=== PATIENT | female | born 1980 | race American Indian/Alaskan Native ===

== ENCOUNTER 2018-08-13 11:00 | Outpatient (CLI) | payer MEDICAID | END 2018-08-13 11:01 | disposition home or self-care (01) | LOC: SLR 11:00 | PROVIDERS: ATTEND Otolaryngology | DX: G47.33 Obstructive sleep apnea (adult) (pediatric) (principal); R40.0 Somnolence; R06.83 Snoring | CPT/HCPCS: G0399 ==

== ENCOUNTER 2018-08-14 14:36 | Outpatient (CLI) | payer MEDICAID ==
--- NOTE | 2018-08-14 16:39 | XRay Report ---
PROCEDURE: XR CHEST ROUTINE 2V TECHNIQUE: PA and lateral views of the chest. HISTORY: PRE OP COMPARISONS: None FINDINGS: Lines, tubes, and devices: N/A Lungs and pleura: Trachea is normal in position. Lungs are clear of infiltrate, pleural effusion, vas cular congestion, or pneumothorax. Cardiomediastinal silhouette: Cardiac and mediastinal silhouettes are unremarkable. Other: Bony structures are intact. IMPRESSION: No acute cardiopulmonary process seen. . This document is electronically signed by Candace Saucedo MD., August 14 2018 04:36:55 PM ET
== END 2018-08-14 14:37 | disposition home or self-care (01) ==
LOC: XRAY 14:36
PROVIDERS: ATTEND Internal Medicine
DX: Z01.818 Encounter for other preprocedural examination (principal)
CPT/HCPCS: 71046

== ENCOUNTER → 2018-09-10 | Outpatient (CLI) | payer MEDICAID | END | disposition home or self-care (01) | LOC: SLR 11:00 | PROVIDERS: ATTEND Otolaryngology | DX: G47.33 Obstructive sleep apnea (adult) (pediatric) (principal); R06.83 Snoring; R40.0 Somnolence; E66.9 Obesity, unspecified | CPT/HCPCS: 95811 ==

== ENCOUNTER 2020-05-10 12:16 | Outpatient (CLI) | payer MEDICAID ==
[2020-05-10 12:56] LABS: Hematocrit 40.4 % (30.3-42.9); Hemoglobin 13.6 gm/dl (10.1-14.3); Mean Corpuscular HGB Conc 34 % (30-34); Mean Corpuscular Volume 81 fl (79-97); Platelet Count 200 K/mm3 (140-440); Red Cell Distribution Width 13.5 % (13.2-15.2)
[2020-05-10 13:08] LABS: Alanine Aminotransferase 25 units/L (7-56); BUN/Creatinine Ratio 28; Blood Urea Nitrogen 14 mg/dL (7-17); Calcium 9.6 mg/dL (8.4-10.2); Chol/HDL Ratio 2.66 %; HDL Cholesterol 50 mg/dL (40-59); Hemolysis Index 5; Iron 40 ug/dL (37-170); LDL Cholesterol,Direct 76 mg/dL (50-130); Total Iron Binding Capacity 281 mcg/dL (250-450)
[2020-05-10 16:12] LABS: RBC Morphology Normal; Total Cells Counted 100
== END 2020-05-10 12:17 | disposition home or self-care (01) ==
LOC: LAB 12:16
PROVIDERS: ATTEND Surgery
DX: E66.01 Morbid (severe) obesity due to excess calories (principal); K30 Functional dyspepsia; E11.9 Type 2 diabetes mellitus without complications
CPT/HCPCS: 36415; 80053; 80061; 82306; 82607; 82728; 83036; 83550; 84443; 85007; 85025; 85730

== ENCOUNTER 2020-06-14 06:56 | Day surgery (SDC) | payer MEDICAID ==
[2020-06-14] MEDS ORDERED: SODIUM CHLORIDE 0.9% 1000 ML 1,000 ML IV SCH (07:00)
--- NOTE | 2020-06-14 09:30 | Anesthesia Day of Surgery ---
Anesthesia Day of Surgery - Day of Surgery Patient Examined: Yes Patient H&P Reviewed: Yes Patient is NPO: Yes
--- NOTE | 2020-06-14 09:31 | Anesthesia Consultation ---
Anesthesia Consult and Med Hx Date of service: 06/14/20 - Airway Anesthetic Teeth Evaluation: Chipped ROM Head & Neck: Adequate Mental/Hyoid Distance: Adequate Mallampati Class: Class III Intubation Access Assessment: Probably Good - Pre-Operative Health Status ASA Pre-Surgery Classification: ASA3 Proposed Anesthetic Plan: MAC - Pulmonary Hx Asthma: Yes Hx Respiratory Symptoms: No (+2FS) Hx Sleep Apnea: Yes - Cardiovascular System Hx Hypertension: Yes (Reports negative cardiac w/u) - Central Nervous System Hx Back Pain: Yes - Gastrointestinal Hx Gastroesophageal Reflux Disease: Yes - Endocrine Hx Renal Disease: No Hx Liver Disease: Yes (Fatty) Hx Non-Insulin Dependent Diabetes: Yes Hx Thyroid Disease: No - Hematic Hx Sickle Cell Disease: No - Other Systems Hx Obesity: Yes
--- NOTE | 2020-06-14 09:43 | Discharge Summary ---
Providers - Providers Date of Admission: 06/14/20 Date of discharge: 06/14/20 Attending physician: OBIE HOPKINS MD Primary care physician: KELSEY BUSTILLO Hospitalization Reason for admission: pre-op planning EGD for bariatric surgery Condition: Good Procedures: EGD with antral bx Hospital course: Pt presented for a pre-op EGD as part of planning for up coming bariatric surgery. Procedure was uneventful and pt recovered well and was discharged to home. Disposition: DC- TO HOME OR SELFCARE Core Measure Documentation - Palliative Care Palliative Care/ Comfort Measures: Not Applicable - Core Measures Any of the following diagnoses?: none Exam - Physical Exam Narrative exam: unchanged from pre-op - Constitutional Vitals: Temp Pulse Resp BP Pulse Ox 98.3 F 89 23 136/74 97 06/14/20 08:11 06/14/20 08:11 06/14/20 08:11 06/14/20 08:11 06/14/20 08:11 Plan Activity: advance as tolerated Diet: clear liquids Follow up with: KELSEY BUSTILLO MD [Primary Care Provider] - 7 Days
--- NOTE | 2020-06-14 09:44 | Operative Report ---
Operative Report Operative Report: DATE: 06/14/20 SURGERY: Upper endoscopy. SURGEON: Faiza Guerrero M.D. PROCEDURE: EGD with biopsy PRE OP DX: morbid obesity, GERD POST OP DX: morbid obesity, GERD TYPE OF ANESTHESIA: MAC. ESTIMATED BLOOD LOSS: None. COMPLICATIONS: None. SPECIMENS REMOVED: antral biopsy FINDINGS: 1. Small hiatal hernia. 2. Otherwise, normal esophagus, stomach and first portion of duodenum. INDICATIONS:INDICATION FOR PROCEDURE: Patient is a 40-year-old female with a long history of morbid obesity. She is planned to have a weight loss procedure and is here for preoperative planning EGD. PROCEDURE DETAILS: After consent was reviewed, patient was taken back to the operating room where patient was placed in the left lateral decubitus position and a bite block was placed in the mouth. After a time-out was called, MAC anesthesia was initiated. I then passed the endoscope into her oropharynx, into her esophagus, visualized the entire esophagus, which was all within normal limits. Z-line was noted to about 40cm from incisors. I then visualized the stomach and the first portion of the duodenum and there were no abnormalities I could clearly visualize. A cold forceps biopsy of the antrum was taken and will be sent to pathology to evaluate for H.pylori. I then retroflexed the scope in the stomach and visualized the hiatus and I could see a small hiatal hernia. I then desufflated the stomach and removed the endoscope. Patient tolerated procedure well and was transferred to recovery room in good and stable condition.
[2020-06-14] MEDS ORDERED: LIDOCAINE MPF (2%) 20 MG/1 ML VIAL 5 ML ONE (09:47)
[2020-06-14] MEDS ORDERED: propofoL 200 MG/20 ML VIAL IV ONE ×2 (09:47→09:53)
[2020-06-14] MEDS ORDERED: SUCRALFATE 1 GM/10 ML ORAL LIQD PO ONE (11:00)
--- NOTE | 2020-06-14 11:00 | Post Anesthesia Evaluation ---
- Post Anesthesia Evaluation Patient Participated: Yes Airway Patent: Yes Stable Respiratory Function: Yes Nausea/Vomiting: No Temp > 96.8F: Yes Pain Manageable: Yes Adequeate Hydration: Yes Anesthesia Complications: No Block Receding Appropriately: Not Applicable Patient on Ventilator: No
[2020-06-14 12:44] VITALS: BP 132/80
== END 2020-06-14 06:57 | disposition home or self-care (01) ==
LOC: GIO 06:56
PROVIDERS: ATTEND Surgery
DX: K21.9 Gastro-esophageal reflux disease without esophagitis (principal); E66.01 Morbid (severe) obesity due to excess calories; K44.9 Diaphragmatic hernia without obstruction or gangrene; K29.50 Unspecified chronic gastritis without bleeding; E78.00 Pure hypercholesterolemia, unspecified; I10 Essential (primary) hypertension; J45.909 Unspecified asthma, uncomplicated; G47.30 Sleep apnea, unspecified; E11.9 Type 2 diabetes mellitus without complications; Z98.890 Other specified postprocedural states; Z68.42 Body mass index [BMI] 45.0-49.9, adult; Z79.899 Other long term (current) drug therapy
CPT/HCPCS: 43239; 82962; 88305; 88342; J2704; J7030

== ENCOUNTER 2020-08-05 10:14 | Outpatient (CLI) | payer MEDICAID ==
[2020-08-05 12:44] LABS: Hematocrit 41.3 % (30.3-42.9); Hemoglobin 13.8 gm/dl (10.1-14.3); Mean Corpuscular HGB Conc 34 % (30-34); Mean Corpuscular Volume 81 fl (79-97); Platelet Count 188 K/mm3 (140-440); Red Blood Count 5.13 M/mm3 (3.65-5.03); Red Cell Distribution Width 13.2 % (13.2-15.2)
[2020-08-05 13:00] LABS: INR 0.98 (0.87-1.13); Partial Thromboplastin Time 27.5 Sec. (24.2-36.6)
[2020-08-05 13:06] LABS: Alanine Aminotransferase 29 units/L (7-56); Albumin 4.1 g/dL (3.9-5); Blood Urea Nitrogen 8 mg/dL (7-17); Calcium 9.6 mg/dL (8.4-10.2); Chol/HDL Ratio 3.33 %; HDL Cholesterol 48 mg/dL (40-59); Hemolysis Index 1; LDL Cholesterol,Direct 110 mg/dL (50-130)
[2020-08-05 13:35] LABS: BUN/Creatinine Ratio 20
--- NOTE | 2020-08-05 16:29 | Treadmill Report ---
TREADMILL STRESS TEST ORDERING PHYSICIAN: Dr. Guerrero READING PHYSICIAN: Dr. Nando Sloan. The patient's baseline EKG is sinus rhythm with nonspecific ST-Ts. Baseline heart rate was 78. Baseline blood pressure 136/72. The patient achieved max predicted heart rate of 155 beats per minute, which is 87% max rate and peak max blood pressure 167/95. The patient exercised for 6 minutes, had no EKG changes suggestive of ischemia or arrhythmias, stopped secondary to shortness of breath. SUMMARY: 1. Negative treadmill EKG. 2. Fair exercise capacity, 6 minutes Marshall protocol. 3. No exaggerated blood pressure response to exercise, 7 METS Marshall protocol. 4. There were no EKG changes or arrhythmia suggestive of ischemia. JOB# [id number] MAGGIE/MICHELLE
--- NOTE | 2020-08-06 10:35 | Electrocardiograph Report ---
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
--- NOTE | 2020-08-08 10:22 | Treadmill Report ---
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
--- NOTE | 2020-08-09 09:30 | XRay Report ---
CHEST 2 VIEWS INDICATION / CLINICAL INFORMATION: ASTHMA. COMPARISON: 08/14/2018 FINDINGS: SUPPORT DEVICES: None. HEART / MEDIASTINUM: No significant abnormality. LUNGS / PLEURA: No significant pulmonary or pleural abnormality. No pneumothorax. ADDITIONAL FINDINGS: No significant additional findings. IMPRESSION: 1. No acute findings. Signer Name: Bear Gomez MD Signed: 08/09/2020 9:25 AM Workstation Name: [id number]
== END 2020-08-05 10:15 | disposition home or self-care (01) ==
LOC: CARD 10:14
PROVIDERS: ATTEND Surgery
DX: J45.909 Unspecified asthma, uncomplicated (principal); I10 Essential (primary) hypertension; G47.33 Obstructive sleep apnea (adult) (pediatric); K21.9 Gastro-esophageal reflux disease without esophagitis; E78.00 Pure hypercholesterolemia, unspecified; E11.9 Type 2 diabetes mellitus without complications; E66.01 Morbid (severe) obesity due to excess calories
CPT/HCPCS: 36415; 71046; 80053; 80061; 82785; 84436; 84443; 85027; 85610; 85730; 86003; 93005; 93017; 93306